=== PATIENT | female | born 1985 | race African-American/Black ===

== ENCOUNTER 2023-03-22 13:00 | Inpatient (IN) | payer OTHER, BC ==
[2023-03-22] VITALS (13 sets, daily range): BP systolic 113–147; BP diastolic 63–78; TEMP 99.2–99.4; O2SAT 93–100
[~2023-03-22] VITALS: Ht 170.2 cm; Wt 84.4 kg
[2023-03-22] MEDS ORDERED: ALBUTEROL SULFATE 2.5 MG/3 ML NEBU ONE ×5 (13:24→16:46)
[2023-03-22] MEDS ORDERED: IPRATROPIUM BROMIDE 0.5 MG/2.5 ML NEBU ONE (13:24)
[2023-03-22] MEDS ORDERED: predniSONE 10 MG TABLET ONE (13:25)
[2023-03-22] MEDS ORDERED: predniSONE 50 MG TABLET ONE (13:25)
[2023-03-22] MEDS ORDERED: predniSONE 10 MG TABLET PO ONE (13:30)
[2023-03-22] MEDS ORDERED: ALBUTEROL SULFATE 2.5 MG/3 ML NEBU NEB ONE ×5 (13:30→16:45)
[2023-03-22] MEDS ORDERED: IPRATROPIUM BROMIDE 0.5 MG/2.5 ML NEBU NEB ONE (13:30)
[2023-03-22] MEDS ORDERED: MAGNESIUM SULFATE 2 GM in IV DEXTROSE 5% 100 ML IV ONE (14:30)
[2023-03-22] MEDS ORDERED: IV NORMAL SALINE 1000 ML BAG IV ONE (14:30)
[2023-03-22] MEDS ORDERED: MAGNESIUM SULFATE 1 GM/2 ML VIAL ONE ×2 (14:36→16:38)
[2023-03-22] MEDS ORDERED: MAGNESIUM SULFATE/D5W 100 ML ONE ×2 (14:37→16:39)
[2023-03-22] MEDS ORDERED: TERBUTALINE SULFATE 1 MG/1 ML VIAL SQ ONE (16:30)
[2023-03-22] MEDS ORDERED: TERBUTALINE SULFATE 1 MG/1 ML VIAL ONE (16:38)
[2023-03-22] MEDS ORDERED: ALBUTEROL SULFATE 2.5 MG/ 0.5 ML NEBU ONE (16:46)
[2023-03-22 16:52] LABS: HEMATOCRIT 44.7 % (31.2-41.9); MEAN CORPUSCULAR HEMOGLOBIN 27.2 uug (24.7-32.8); MEAN CORPUSCULAR VOLUME 83.8 fL (75.5-95.3); PLATELET COUNT (AUTO) 410 K/uL (179-408)
[2023-03-22 17:02] LABS: CREATININE 1.2 mg/dL (0.6-1.3); POTASSIUM 3.5 mmol/L (3.5-5.1)
[2023-03-22 17:07] LABS: BILIRUBIN,DIRECT 0.1 mg/dL (0.0-0.2); BILIRUBIN,TOTAL 0.5 mg/dL (0.2-1.0); TOTAL PROTEIN, SERUM 7.8 g/dL (6.4-8.2)
[2023-03-22 17:20] LABS: VENT MODE, VBG Nasal Cannula
[2023-03-22] MEDS ORDERED: MORPHINE SULFATE 2 MG/1 ML DISP.SYRIN IV PRN (20:00)
[2023-03-22] MEDS ORDERED: levoFLOXacin 500 MG/D5W 500 MG in PREMIXED 1 EACH IV SCH (20:00)
[2023-03-22] MEDS ORDERED: ACETAMINOPHEN 325 MG TABLET PO PRN (20:00)
[2023-03-22] MEDS ORDERED: ONDANSETRON 4 MG/2 ML VIAL IV PRN (20:00)
[2023-03-22] MEDS ORDERED: levoFLOXacin 500 MG/D5W 100 ML ONE (21:11)
[2023-03-22] MEDS ORDERED: TEMAZEPAM 15 MG CAPSULE PO PRN (21:30)
[2023-03-22] MEDS ORDERED: GUAIFENESIN/DEXTROMETHORPHAN 5 ML UDC PO PRN (21:30)
[2023-03-22] MEDS: methylPREDNISolone SOD SUCC 40 MG/ML VIAL IV SCH (22:37)
[2023-03-23] VITALS (10 sets, daily range): BP systolic 118–133; BP diastolic 64–71; TEMP 97.9–99; O2SAT 93–97
[2023-03-23] MEDS: methylPREDNISolone SOD SUCC 40 MG/ML VIAL IV SCH ×3 (06:33→22:16)
[2023-03-23] MEDS: PANTOPRAZOLE SODIUM 40 MG TABLET.DR PO SCH (06:36)
[2023-03-23 06:52] LABS: HEMATOCRIT 42.5 % (31.2-41.9); MEAN CORPUSCULAR HEMOGLOBIN 27.7 uug (24.7-32.8); MEAN CORPUSCULAR VOLUME 83.8 fL (75.5-95.3); PLATELET COUNT (AUTO) 415 K/uL (179-408)
[2023-03-23 07:12] LABS: ALANINE AMINOTRANSFERASE 39 U/L (14-59); ALKALINE PHOSPHATASE 72 U/L (50-136); ASPARTATE AMINOTRANSFERASE 18 U/L (15-37); BILIRUBIN,TOTAL 0.6 mg/dL (0.2-1.0); CARBON DIOXIDE 22 mmol/L (21-32); CHLORIDE 104 mmol/L (98-107); MAGNESIUM 2.7 mg/dL (1.8-2.4); PHOSPHOROUS 1.9 mg/dL (2.5-4.9); POTASSIUM 4.2 mmol/L (3.5-5.1); UREA NITROGEN, BLOOD 11 mg/dL (7-18)
[2023-03-23 07:19] LABS: THYROID STIMULATING HORMONE 0.231 mIU/mL (0.358-3.740)
[2023-03-23] MEDS ORDERED: NEUTRA PHOS PACKET PO ONE (08:00)
[2023-03-23 08:09] LABS: IRON, SERUM 34 ug/dL (50-175)
[2023-03-23] MEDS: IPRATROPIUM BROMIDE 0.5 MG/2.5 ML NEBU NEB PRN ×2 (09:38→17:56)
[2023-03-23] MEDS: LEVALBUTEROL HCL NEB 0.63 MG/3 ML NEBU NEB PRN ×2 (09:39→17:56)
[2023-03-23] MEDS ORDERED: LORA10TA61 PO (12:33)
[2023-03-23] MEDS ORDERED: IPRA12.9 INH (12:33)
[2023-03-23] MEDS ORDERED: ALBU18HF2 INH (12:33)
[2023-03-23] MEDS ORDERED: levoFLOXacin 750MG/D5W 150 ML IV ONE (22:01)
[2023-03-23] MEDS: levoFLOXacin 750MG/D5W 150 ML IV SCH (22:16)
[2023-03-24] VITALS (9 sets, daily range): BP systolic 102–122; BP diastolic 48–72; TEMP 98.2–98.6; O2SAT 92–99
[2023-03-24] MEDS: methylPREDNISolone SOD SUCC 40 MG/ML VIAL IV SCH ×3 (06:36→21:19)
[2023-03-24] MEDS: PANTOPRAZOLE SODIUM 40 MG TABLET.DR PO SCH (06:36)
[2023-03-24] MEDS: LEVALBUTEROL HCL NEB 0.63 MG/3 ML NEBU NEB PRN (09:46)
[2023-03-24] MEDS: IPRATROPIUM BROMIDE 0.5 MG/2.5 ML NEBU NEB PRN (09:46)
[2023-03-24] MEDS ORDERED: NEUTRA PHOS PACKET PO ONE (16:00)
[2023-03-24] MEDS: IPRATROPIUM BROMIDE 0.5 MG/2.5 ML NEBU NEB SCH (19:25)
[2023-03-24] MEDS: LEVALBUTEROL HCL NEB 0.63 MG/3 ML NEBU NEB SCH (19:25)
[2023-03-24] MEDS ORDERED: levoFLOXacin 750MG/D5W 150 ML IV ONE (20:31)
[2023-03-24] MEDS: levoFLOXacin 750MG/D5W 150 ML IV SCH (20:46)
[2023-03-25] VITALS: BP 123/61; TEMP 97.4; O2SAT 96
[2023-03-25] MEDS: LEVALBUTEROL HCL NEB 0.63 MG/3 ML NEBU NEB SCH ×3 (01:05→13:42)
[2023-03-25] MEDS: IPRATROPIUM BROMIDE 0.5 MG/2.5 ML NEBU NEB SCH ×3 (01:05→13:42)
[2023-03-25 06:13] LABS: HEMATOCRIT 40.5 % (31.2-41.9); MEAN CORPUSCULAR HEMOGLOBIN 27.7 uug (24.7-32.8); MEAN CORPUSCULAR VOLUME 83.2 fL (75.5-95.3); PLATELET COUNT (AUTO) 403 K/uL (179-408)
[2023-03-25 06:30] LABS: CARBON DIOXIDE 24 mmol/L (21-32); CHLORIDE 105 mmol/L (98-107); CREATININE 1.2 mg/dL (0.6-1.3); MAGNESIUM 2.3 mg/dL (1.8-2.4); PHOSPHOROUS 3.7 mg/dL (2.5-4.9); POTASSIUM 4.1 mmol/L (3.5-5.1); UREA NITROGEN, BLOOD 15 mg/dL (7-18)
[2023-03-25] MEDS: PANTOPRAZOLE SODIUM 40 MG TABLET.DR PO SCH (06:35)
[2023-03-25] MEDS: methylPREDNISolone SOD SUCC 40 MG/ML VIAL IV SCH (06:35)
[2023-03-25 07:45] VITALS: O2SAT 96
[2023-03-25 08:00] VITALS: O2SAT 99
[2023-03-25 11:36] VITALS: BP 111/62; TEMP 97.8; O2SAT 94
[2023-03-25] MEDS ORDERED: ALBU1.257 NEB (12:58)
[2023-03-25] MEDS ORDERED: METH4TAB3 PO (12:58)
[2023-03-25] MEDS ORDERED: FLUT1DIS28 INH (12:58)
[2023-03-25 13:30] VITALS: O2SAT 96
[2023-03-25 13:45] VITALS: O2SAT 99
[2023-03-25] MEDS ORDERED: ALBUTEROL SULFATE 1.25 MG/3 ML NEBU NEB PRN (15:30)
[2023-03-25] MEDS ORDERED: methylPREDNISolone SOD SUCC 40 MG/ML VIAL IV SCH ×2 (16:00→18:00)
[2023-03-25] MEDS ORDERED: ALBUTEROL SULFATE 1.25 MG/3 ML NEBU NEB SCH (19:30)
== END 2023-03-25 16:00 | disposition home health service (06) | DRG 145 ==
LOC: ER 13:00 → TELE3 17:48
PROVIDERS: ADMIT Internal Medicine; ATTEND Internal Medicine
DX: J20.8 Acute bronchitis due to other specified organisms (principal); J45.901 Unspecified asthma with (acute) exacerbation; B96.89 Other specified bacterial agents as the cause of diseases classified elsewhere; Z88.0 Allergy status to penicillin; Z20.822 Contact with and (suspected) exposure to COVID-19; Z86.16 Personal history of COVID-19; Z68.29 Body mass index [BMI] 29.0-29.9, adult; E66.9 Obesity, unspecified; R73.03 Prediabetes; R00.0 Tachycardia, unspecified; T48.6X5A Adverse effect of antiasthmatics, initial encounter; Y92.039 Unspecified place in apartment as the place of occurrence of the external cause; F12.90 Cannabis use, unspecified, uncomplicated; J31.0 Chronic rhinitis; Z87.01 Personal history of pneumonia (recurrent); Z83.49 Family history of other endocrine, nutritional and metabolic diseases
CPT/HCPCS: 36415; 36600; 71045; 82785; 82803; 83550; 83735; 84100; 84443; 84484; 85025; 86140; 94640; 94760; A4663; G0378; J1956; J2920; J3105; J3475; J3590; J7512; J7614

== ENCOUNTER 2023-04-30 19:43 | Emergency (ER) | payer BC, OTHER ==
[~2023-04-30] VITALS: Ht 170.2 cm; Wt 86.2 kg
[~2023-04-30 19:43] MED LIST: ALBU1.257 NEB; ALBU18HF2 INH; FLUT1DIS28 INH; IPRA12.9 INH; LORA10TA61 PO; METH4TAB3 PO
[2023-04-30] MEDS ORDERED: NAPR-1164 PO (22:35)
[2023-04-30 23:28] VITALS: BP 121/73; TEMP 97.8; O2SAT 97
== END 2023-04-30 23:25 | disposition home or self-care (01) ==
LOC: ER 19:46
DX: M25.462 Effusion, left knee (principal); M25.461 Effusion, right knee; J45.909 Unspecified asthma, uncomplicated; Z88.0 Allergy status to penicillin; F17.210 Nicotine dependence, cigarettes, uncomplicated; Z79.899 Other long term (current) drug therapy
CPT/HCPCS: A4663

== ENCOUNTER 2024-08-13 12:35 | Emergency (ER) | payer BC, OTHER ==
[~2024-08-13] VITALS: Ht 170.2 cm; Wt 90.7 kg
[~2024-08-13 12:35] MED LIST changes: +NAPR-1164 PO
[2024-08-13] MEDS ORDERED: ALBUTEROL SULFATE 2.5 MG/3 ML NEBU ONE ×2 (12:49→15:23)
[2024-08-13] MEDS ORDERED: IPRATROPIUM BROMIDE 0.5 MG/2.5 ML NEBU ONE (12:49)
[2024-08-13] MEDS: ALBUTEROL SULFATE 2.5 MG/3 ML NEBU NEB ONE ×2 (12:51→15:25)
[2024-08-13] MEDS: IPRATROPIUM BROMIDE 0.5 MG/2.5 ML NEBU NEB ONE (12:51)
[2024-08-13 12:56] VITALS: O2SAT 97
[2024-08-13 13:07] LABS: BASOPHILS # (AUTO) 0.1 K/UL (0.0-0.2); BASOPHILS % (AUTO) 0.7 % (0.0-2.0); EOSINOPHILS # (AUTO) 0.7 K/uL (0.0-0.7); EOSINOPHILS % (AUTO) 7.5 % (0.0-7.0); HEMATOCRIT 44.9 % (31.2-41.9); LYMPHOCYTES # (AUTO) 3.2 K/uL (0.8-4.8); LYMPHOCYTES % (AUTO) 36.1 % (20.5-51.5); MEAN CORPUSCULAR HGB CONC 34 g/dL (32.3-35.6); MEAN CORPUSCULAR VOLUME 80.8 fL (75.5-95.3); MONOCYTES # (AUTO) 0.5 K/uL (0.1-1.30); MONOCYTES % (AUTO) 5.5 % (0.0-11.0); NEUTROPHILS # (AUTO) 4.5 K/uL (1.8-8.9); NEUTROPHILS % (AUTO) 50.2 % (38.5-71.5); PLATELET COUNT (AUTO) 419 K/uL (179-408); RED BLOOD CELL COUNT(AUTO) 5.56 MIL/uL (3.63-4.92); RED CELL DISTRIBUTION WIDTH 15.2 % (12.3-17.7); WHITE BLOOD COUNT (AUTO) 8.9 K/uL (3.8-11.8)
[2024-08-13] MEDS ORDERED: methylPREDNISolone SOD SUCC 125 MG/2 ML VIAL ONE (13:10)
[2024-08-13] MEDS: IV NORMAL SALINE 1000 ML BAG IV ONE (13:14)
[2024-08-13 13:20] LABS: DIFFERENTIAL COMMENT 1
[2024-08-13] MEDS: methylPREDNISolone SOD SUCC 125 MG/2 ML VIAL IV ONE (13:20)
[2024-08-13] MEDS ORDERED: MAGNESIUM SULFATE/D5W 200 ML ONE (13:21)
[2024-08-13 13:26] LABS: CALCIUM 9.1 mg/dL (8.5-10.1); CREATININE 1.1 mg/dL (0.6-1.3); POTASSIUM 3.6 mmol/L (3.5-5.1)
[2024-08-13] MEDS: MAGNESIUM SULFATE 2 GM in IV DEXTROSE 5% 100 ML IV ONE (13:30)
[2024-08-13 14:04] VITALS: O2SAT 98
[2024-08-13] MEDS ORDERED: AMOXICILLIN-CLAVUL 875-125MG TABLET ONE (14:50)
[2024-08-13] MEDS ORDERED: PSEUDOEPHEDRINE HCL 30 MG TABLET ONE (14:50)
[2024-08-13] MEDS: AMOXICILLIN-CLAVUL 875-125MG TABLET PO ONE (14:58)
[2024-08-13] MEDS: PSEUDOEPHEDRINE HCL 30 MG TABLET PO ONE (14:58)
[2024-08-13 15:28] VITALS: O2SAT 95
[2024-08-13 16:29] VITALS: O2SAT 98
[2024-08-13] MEDS ORDERED: PRED50TA PO (17:22)
[2024-08-13] MEDS ORDERED: ALBU6.7H9 INH (17:22)
[2024-08-13] MEDS ORDERED: FLUT12AE20 INH (17:22)
[2024-08-13] MEDS ORDERED: PSEU-249 PO (17:22)
[2024-08-13] MEDS ORDERED: FLUT16SP16 BNOSTRILS (17:22)
[2024-08-13] MEDS ORDERED: AMOX-430 PO (17:22)
[2024-08-13] MEDS ORDERED: OXYM15MI4 NS (17:22)
[2024-08-13] MEDS ORDERED: FLUC200T PO (17:22)
[2024-08-13 17:39] VITALS: BP 141/72; TEMP 98.6; O2SAT 96
== END 2024-08-13 17:46 | disposition home or self-care (01) ==
LOC: ER 12:35
DX: J32.9 Chronic sinusitis, unspecified (principal); J45.902 Unspecified asthma with status asthmaticus; R07.89 Other chest pain; F17.210 Nicotine dependence, cigarettes, uncomplicated; Z79.51 Long term (current) use of inhaled steroids; Z88.0 Allergy status to penicillin
CPT/HCPCS: 99291; 96365; 96375; 80048; 85025; 36415; 71045; 93005; J3475 ×2; J2919; J7040; A4606; A4663; J3590